=== PATIENT | female | born 1965 | race Caucasian/White ===

== ENCOUNTER → 2017-09-10 | Outpatient (CLI) | payer OTHER ==
[~2017-09-10] MED LIST: CLONAZEPAM 0.50.5 M1 PO; HYDROCHLOROTHIA25 M2 PO; ISOMETHEPT-DIC1 EACH PO; LIORESAL 10 MG10 MG PO; NEPHROCAPS SOFT1 CAP PO; OMEGA-31000 M1 PO; PROZAC20 MG PO; SKELAXIN 800 M800 M1 PO; SYNTHROID100 MC1 PO; TRAZODONE HCL50 MG PO; UNICOMPLEX M TA1 TA1 PO
== END ==
LOC: RAD 08:13
DX: Z12.31 Encounter for screening mammogram for malignant neoplasm of breast (principal)

== ENCOUNTER → 2017-10-30 | Outpatient (CLI) | payer OTHER | LOC: RAD 15:16 | DX: M47.894 Other spondylosis, thoracic region (principal); M41.84 Other forms of scoliosis, thoracic region; M47.892 Other spondylosis, cervical region; M25.512 Pain in left shoulder ==

== ENCOUNTER → 2017-11-12 | Outpatient (CLI) | payer OTHER ==
[~2017-11-12] VITALS: Ht 170.2 cm; Wt 79.4 kg
--- NOTE | ~2017-11-12 | HPC ---
[facility] [address] [place] [address] PAIN MANAGEMENT CONSULTATION Name: SAMIA MURO Room #: REG [facility]#: [id number] Admission: 11/12/17 Attend Phys: Oleg Hahn DO Discharge: Date of : 67 Report #: [id number] THIS REPORT FOR: //name// CC: Oleg Martini MD DATE OF SERVICE: 11/12/2017 REFERRING PHYSICIAN: aLna Martini MD. CHIEF COMPLAINT: Neck pain, upper back pain, mid back pain, bilateral shoulder pain. HISTORY OF PRESENT ILLNESS: As you know, the patient is a 52-year-old female who has had a 3-year history of neck pain, upper back pain, mid back pain, bilateral shoulder pain. The patient states her pain began without inciting injury or trauma, progressively worsened. She indicates pain has been present for about 3 years. She indicates her PCP has trialed conservative treatment, though this has been ineffective at providing prolonged improvement in symptoms. Due to lack of improvement with conservative treatment, the patient was referred to our clinic to discuss options of therapy. She indicates today pain is continuous and constant, describes the pain as burning, aching, pulling, gnawing and tender, places current pain score 4/10, daily average of 4-5/10, worst pain has been 7/10. The patient states that sitting in the computer and looking down exacerbates symptoms, lying flat on a hard floor tends to improve pain. She has been referred to our clinic to discuss options for treatment for neck pain, upper back pain, bilateral shoulder pain. PAST MEDICAL HISTORY: 1. Depression. 2. Hypertension. 3. Hypothyroidism. 4. Osteoarthritis. PAST SURGICAL HISTORY: 1. section. 2. D and C x 1 in 1993, D and C in 1997. SOCIAL HISTORY: The patient denies tobacco, IV or illicit drug use. Admits to approximately 2 alcoholic beverages per week. She is a registered nurse. She is working, not receiving workmen's compensation nor is she trying to obtain disability benefits. She is unaccompanied at today's visit. She is not in litigation in regards to her pain. REVIEW OF SYSTEMS: Positive for weight gain, decrease in appetite, fever, night [facility] [address] [place] [address] PAIN MANAGEMENT CONSULTATION Name: SAMIA MURO Room #: REG [facility].#: [id number] Admission: 11/12/17 Attend Phys: Oleg Hahn DO Discharge: Date of : 67 Report #: [id number] sweats, fatigue, weakness, headaches, wearing corrective eyewear, palpitations, frequent urination, nocturia, painful menses, irregular menses, lightheadedness and dizziness, numbness or tingling sensations, depression, insomnia, thyroid disease, heat and cold intolerance, anemia. All other review of systems negative per 12-point review of systems other than those listed in history of present illness. Pain impact score 30/70, indicating mild to moderate interference of daily activities secondary to pain. ALLERGIES: AUGMENTIN, BIAXIN, AMOXICILLIN. CURRENT MEDICATIONS: Trazodone 50 mg 2 tabs p.o. at bedtime, omega-3 fish oil 1000 mg once a day, vitamin B complex 1 tab per day, multivitamin 1 tab per day, levothyroxine 100 mcg per day, hydrochlorothiazide 25 mg once a day, fluoxetine 20 mg 2 tabs per day, clonazepam 0.5 mg p.o. at bedtime, baclofen 10 mg t.i.d. IMAGING: X-ray of cervical spine obtained 10/30/2017 shows no acute osseous abnormality. Paravertebral soft tissues are unremarkable. Vertebral disks are unremarkable and intact. X-ray of thoracic spine obtained on 10/30/2017 shows mild loss of detail at the T12 level, slight thoracic dextroscoliosis, normal kyphosis. Mild diffuse degenerative changes, no fractures or osseous abnormalities noted, otherwise. X-ray of left shoulder obtained on , no fracture, no dislocation. Shoulder alignment is normal and well maintained. PHYSICAL EXAMINATION: VITAL SIGNS: Blood pressure 123/77, pulse 77, respiratory rate 14, unlabored. The patient is 100% on room air. Height 5 feet 7 inches tall, weight 175 pounds, BMI calculated 27.4. GENERAL: Well-developed, well-nourished, well-hydrated 52-year-old female, appearing her stated age, pain is rated at approximately 4/10. HEENT: Normocephalic, atraumatic. Pupils equal, round, reactive to light. Extraocular muscles are intact. Sclerae nonicteric without injection. NEUROLOGIC: Cranial nerves 2-12 grossly intact. Speech is fluent. The patient deemed a good historian. LUNGS: Clear, no wheeze, rhonchi or rales. CARDIOVASCULAR: Regular. No appreciable gallop, no rub. ABDOMEN: Soft, nontender, nondistended, normoactive bowel sounds. EXTREMITIES: Show no clubbing, no cyanosis, no edema. MUSCULOSKELETAL: Upper extremity strength is equal and symmetrical 5/5. She is intact to light touch from C5-T1 dermatomes. Lower extremity strength equal and symmetrical 5/5, intact to light touch from L1 through S2 dermatomes. There is palpatory tenderness over the paraspinal musculature of the lower cervical, [facility] [address] [place] [address] PAIN MANAGEMENT CONSULTATION Name: SAMIA MURO Room #: REG Elidia Luis Antonio#: [id number] Admission: 11/12/17 Attend Phys: Oleg Hahn DO Discharge: Date of : 67 Report #: [id number] upper thoracic area with symptoms palpable all the way to about mid thoracic level. There are multiple tender points, no specific trigger points. Spinous process tenderness is negative. She is intact to light touch from T1 through T12 dermatomes. ASSESSMENT: 1. Myofascial pain. 2. Muscle spasms of the thoracic paraspinal musculature. 3. Improper posture. 4. Chronic intractable pain. PLAN: 1. Based on today's physical exam and the history the patient has provided, the description the patient uses in regards to pain as well as location of symptoms, likely source of the patient's pain is myofascial in origin. We did review the x-ray imaging of the cervical and thoracic region, which shows little or no pathology. Only discernible pathology is some minor dextroscoliosis of the thoracic area, which is likely not contributing significantly to the patient's overall symptoms. Cervical spine is essentially negative. We have discussed with the patient today that treatment options should remain conservative. I am not able to elicit any radicular component of the patient's symptoms that would require us to move forward with interventional treatments. I would recommend utilizing stretching exercises, adjusting the patient's workstation for more ergonomically appropriate positioning of the computer and keyboard, also look towards stretching exercises on a daily basis at home. This in conjunction with medication management. The patient is excited about not necessarily having to undergo interventional treatments and is looking forward to treatment with conservative therapy and physical therapy. 2. The patient will begin physical therapy. I have given the patient a prescription to undergo this type of treatment she can start this at her earliest convenience. 3. The patient will be started on Skelaxin. We will place this in place of any other muscle relaxant. I have given her 800 mg tablet 1 tab p.o. t.i.d. p.r.n., #90 two refills. We have used the Skelaxin as it has the lowest sedation potential of the muscle relaxants. She will watch for side effects with this medication including somnolence, decreased mental acuity, disorientation and confusion. 4. We will start the patient on Zipsor 25 mg dose 1 tab p.o. t.i.d. I have given the patient #90 tablets, 2 refills. The patient was given Zipsor specifically as she has had issues with anti-inflammatories in the past causing GI upset. Zipsor is a potent agent at a lower dose. It is a liquid gel, which reduces the GI irritation. I recommend the patient remain on the Zipsor as we find this more beneficial than the generic diclofenac, less GI upset and much greater efficacy. We have given the patient the prescription today, this was done with refills if necessary. 5. We wish to thank the referring physician for the opportunity to see the [facility] [address] [place] [address] PAIN MANAGEMENT CONSULTATION Name: SAMIA MURO Room #: REG CLElidia Salmon#: [id number] Admission: 11/12/17 Attend Phys: Oleg Hahn DO Discharge: Date of : 67 Report #: [id number] patient in consultation. I am pleased at this time to advice the patient she does not need to look for more interventional treatments. She should look forward to treatment options such as physical therapy and a low dose nonsteroidal anti-inflammatory medications and ergonomic adjustments in her work station. 6. 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 Adjustments in this work station will improve the patient's posture which will reduce her thoracolumbar strain, which is the source of the patient's current symptoms. Adjusting these devices with either tabletop based devices that can be moved up or down to either stand or sit at a desk or providing a computer on wheels that has the capability to move the device up and down, so the patient can stand or sit during work would be most beneficial. The patient will contact her human resources individual in regards to this type of alternative work station positioning. 7. Again, we wish to thank the referring physician for the opportunity to see the patient in consultation. We will see her back as necessary. Thank you again for the consultation. <ELECTRONICALLY SIGNED> By: Oleg Hahn DO 11/26/17 [id number] Oleg Hahn DO /nt
[2017-11-12 09:06] VITALS: BP 123/77
== END ==
LOC: PAIN 06:55
DX: M79.1 Myalgia (principal); G89.4 Chronic pain syndrome; M54.5 Low back pain; I10 Essential (primary) hypertension; E03.9 Hypothyroidism, unspecified

== ENCOUNTER → 2018-05-13 | Outpatient (CLI) | payer OTHER | LOC: CAT 07:52 | DX: Z13.6 Encounter for screening for cardiovascular disorders (principal) ==

== ENCOUNTER → 2018-09-15 | Outpatient (CLI) | payer OTHER | LOC: MRI 13:50 | DX: M54.2 Cervicalgia (principal); R20.0 Anesthesia of skin; M54.6 Pain in thoracic spine; G56.90 Unspecified mononeuropathy of unspecified upper limb ==

== ENCOUNTER → 2019-09-24 | Outpatient (CLI) | payer OTHER | LOC: ULTRA 12:55 | DX: D25.9 Leiomyoma of uterus, unspecified (principal) ==

== ENCOUNTER 2021-09-16 13:34 | Emergency (ER) | payer OTHER ==
[~2021-09-16] VITALS: Ht 170.2 cm; Wt 90.7 kg
[2021-09-16 15:30] VITALS: BP 122/86
== END 2021-09-16 15:30 | disposition home or self-care (01) ==
LOC: ER 13:34
DX: S61.412A Laceration without foreign body of left hand, initial encounter (principal); Z79.899 Other long term (current) drug therapy; Z88.0 Allergy status to penicillin; Z88.1 Allergy status to other antibiotic agents; W26.0XXA Contact with knife, initial encounter; Y93.89 Activity, other specified; Y92.89 Other specified places as the place of occurrence of the external cause; Y99.8 Other external cause status